=== PATIENT | male | born 1930 | race Caucasian/White ===

== ENCOUNTER 2019-07-01 10:15 | Inpatient (IN) | payer OTHER ==
[~2019-07-01] VITALS: Ht 177.8 cm; Wt 65.7 kg
[~2019-07-01 10:15] MED LIST: GLUC500 PO; IBUP600 PO; THERA1 EACH PO; TURMERIC PO
--- NOTE | 2019-07-01 10:53 | NUR ---
History, Chart, Medications and Allergies reviewed before start of procedure. Lungs clear T/O to Auscultation. Patient confirms NPO status and agrees with scheduled surgery. Pre-Op teaching done. Pt verbalizes understanding. Patient reports completing Chlorhexadine shower X2 prior to admission to hospital.
--- NOTE | 2019-07-01 19:19 | NUR ---
SHIFT SUMMARY PT STRUGGLED WITH NAUSEA AFTER WORKING WITH THERAPY. STATES RESOLVED WITH ZOFRAN. VOIDED. DENIES PAIN MORE THAN 1/10. PLEASANT AND COOPERATIVE.
--- NOTE | 2019-07-02 04:13 | NUR ---
SHIFT SUMMARY PT IS S/P R NIKKI WITH 3 DRESSINGS TO R LEG WHICH ARE CDI. PT A/O X4. PT HAS BEEN UP TO BATHROOM SEVERAL TIMES THIS SHIFT AND WALKS IND. WITH STANDBY ASSIST. PT DID VOID BUT WAS UNABLE TO EMPTY BLADDER AND WAS STRAIGHT CATH'D PER ORDERS. PT HAS SINCE BEEN RESTING QUIETLY IN BED. ASSISTED WTIH ADL'S PRN, TOLERATING PO INTAKE.
[2019-07-02 05:03] LABS: BASOPHILS ABSOLUTE AUTO 0.01 K/mm3 (0.00-0.23); BASOPHILS PERCENT AUTO 0 % (0-2); EOSINOPHILS ABSOLUTE AUTO 0.02 K/mm3 (0.00-0.68); EOSINOPHILS PERCENT AUTO 0 % (0-6); Hematocrit 31.4 % (37.0-53.0); Hemoglobin 10.9 g/dL (13.5-17.5); IMMATURE GRAN ABSOLUTE AUTO 0.08 K/mm3 (0.00-0.10); IMMATURE GRAN PERCENT AUTO 1 % (0-1); LYMPHOCYTES PERCENT AUTO 8 % (21-46); MONOCYTES ABSOLUTE AUTO 1.23 K/mm3 (0.16-1.47); MONOCYTES PERCENT AUTO 10 % (4-13); Mean Corpuscular HGB 34.6 pg (26.0-34.0); Mean Corpuscular HGB Conc 34.7 g/dL (31.5-36.5); Mean Corpuscular Volume 100 fL (80-100); Mean Platelet Volume 9.3 fL (9.1-12.4); NEUTROPHILS ABSOLUTE AUTO 10.54 K/mm3 (1.96-9.15); NEUTROPHILS PERCENT AUTO 82 % (41-73); Platelet Count 190 K/mm3 (150-400); RDW Coefficient Variation 12.8 % (11.7-14.2); RDW Standard Deviation 46.9 fL (35.1-46.3); Red Blood Cell Count 3.15 M/mm3 (4.30-5.90); White Blood Cell Count 12.88 K/mm3 (4.00-11.30)
[2019-07-02 05:33] LABS: Anion Gap 5 mmol/L (6-16); Blood Urea Nitrogen 13 mg/dL (8-24); CO2, Blood 27 mmol/L (21-32); Calcium, Blood 8.3 mg/dL (8.5-10.1); Chloride, Blood 101 mmol/L (98-108); Creatinine, Blood 0.59 mg/dL (0.60-1.20); Glomerular Filtration Rate >60 (60-); Glucose, Blood 120 mg/dL (70-99); Magnesium, Blood 1.8 mg/dL (1.6-2.4); Potassium, Blood 4.4 mmol/L (3.5-5.5); Sodium, Blood 133 mmol/L (136-145)
[2019-07-02] MEDS ORDERED: ASPI325 PO (14:04)
[2019-07-02] MEDS ORDERED: OXYC5 PO (14:05)
[2019-07-02] MEDS ORDERED: PROM25 PO (14:06)
--- NOTE | 2019-07-02 15:19 | NUR ---
pt unable to empty bladder, adamant about going home. Discussed at length the process of urinary retention as patient thinks he will be ok since "it's working" he is voiding 50-100ml each void however retained 380 on bladder scan. Up to void at this time 50ml bladder scan shows [address] Taveras notified, hospitalist consult called to Dr. Rogers
--- NOTE | 2019-07-02 16:10 | NUR ---
PATIENT UP TO VOID 150 ML. [facility] ADMIN AND DR SNELL HERE TO SPEAK WITH PATIENT. PATIENT AGREEABLE TO STAY UNTIL VOIDING ADAQUATELY. CONT TO MONITOR.
--- NOTE | 2019-07-02 18:40 | NUR ---
PATIENT UP TO BR W/SBA, FWW, VOIDED 200 ML. BLADDER SCAN = 379 ML. WILL REPORT TO BETTE LOYD.
--- NOTE | 2019-07-02 20:15 | NUR ---
PT ADAMANT ON LEAVING. EDUCATED ON RISK OF URINARY RETENTION. PT UNDERSTANDS RISKS. EDUCATED ON HOW TO STRAIGHT CATH SELF. PATIENT STATES UNDERSTANDING. ENCOURAGED PT TO FOLLOW UP WITH PRIMARY CARE. BLADDER SCANNED PT ON POST VOID OF 167 PRIOR TO DISCHARGE. PT STATES PLAN TO MONITOR URINE OUTPUT AND COME BACK IF UNABLE TO RELIEVE URGE. PT VOIDED 200 AFTER BLADDER SCAN. CURRENTLY AWAITING HIS RIDE HOME. DISCHARGE PAPERWORK GONE OVER. BELONGINGS WITH PATIENT. NO FURTHER QUESTIONS AT THIS TIME.
--- NOTE | 2019-07-02 20:38 | NUR ---
PT DISCHARGED TO HOME VIA WHEELCHAIR WITH SON. BELONGINGS WITH PATIENT INFO GONE OVER WITH PT. NO FURTHER QUESTIONS AT THIS TIME.
== END 2019-07-02 20:45 | disposition home or self-care (01) | DRG 470 ==
LOC: SURS 10:15 → PRE IP 12:15 → SURS 14:24
PROVIDERS: ADMIT Orthopaedic Surgery
PROC: 0SR904A Replacement of Right Hip Joint with Ceramic on Polyethylene Synthetic Substitute, Uncemented, Open Approach (ICD-10-PCS; principal; 2019-07-01 12:15)
DX: M16.11 Unilateral primary osteoarthritis, right hip (principal); Z98.890 Other specified postprocedural states; R33.9 Retention of urine, unspecified; J44.9 Chronic obstructive pulmonary disease, unspecified; G47.33 Obstructive sleep apnea (adult) (pediatric); J62.8 Pneumoconiosis due to other dust containing silica; G89.29 Other chronic pain
CPT/HCPCS: 36415; 72170; 80048; 83735; 85025; 88300; 97110; 97116; 97162; 97165; 97535; C1713; C1776; J0171; J0690; J0735; J1100; J1885; J2405; J2704; J2710; J2765; J2795; J3010; J7120

== ENCOUNTER → 2020-04-27 | Outpatient (CLI) | payer OTHER ==
[~2020-04-27] MED LIST changes: +ASPI325 PO; +OXYC5 PO; +PROM25 PO
== END ==
LOC: PLD 14:28 → LAB SHORT 14:28
DX: C44.319 Basal cell carcinoma of skin of other parts of face (principal)
CPT/HCPCS: 88305

== ENCOUNTER → 2020-06-01 | Outpatient (CLI) | payer OTHER | END | disposition home or self-care (01) | LOC: PLD 14:58 → LAB SHORT 14:58 | DX: C44.310 Basal cell carcinoma of skin of unspecified parts of face (principal) | CPT/HCPCS: 88305 ==

== ENCOUNTER 2020-09-15 09:41 | Day surgery (SDC) | payer OTHER ==
[~2020-09-15] VITALS: Ht 175.3 cm; Wt 63.6 kg
[~2020-09-15 09:41] MED LIST changes: +B COMPLEX FORM0.4 MG PO; +C COMPLEX1000 M1 PO; +TOCO1000 PO; +VITAMIN D310 MC4 PO; +Vitamin B-121000 MCG PO
--- NOTE | 2020-09-15 11:18 | NUR ---
IV ACCESS X2 UNSUCCESSFUL BY TAYO RN, X1 RUDY RN, X1 AYALA WITH 1 SUCCEFULL ATTEMPT BY AYALA LOYD. Ambulatory in Day Surgery History, Chart, Medications and Allergies reviewed before start of procedure.Patient confirms NPO status and agrees with scheduled surgery. Patient reports completing Chlorhexadine shower X2 prior to admission to hospital.Surgical site prepped with 2% Chlorhexidine cloth wipe.LUNG SOUNDS DIMINISHED T/O. Patient States Post-Procedure ride home has been arranged WITH SON
--- NOTE | 2020-09-15 11:33 | NUR ---
assumed care of patient recived rport waiting for marcial amato nurse to round
--- NOTE | 2020-09-15 14:28 | NUR ---
Dressing to procedure site clean, dry, intact with no visible drainage, swelling, erythema or bruising noted.
--- NOTE | 2020-09-15 14:57 | NUR ---
Discharge instructions reviewed with patient. Patient verbalizes understanding. Copy given to patient to take home. Dressing to procedure site clean, dry, intact with no visible drainage, swelling, erythema or bruising noted. Patient States Post-Procedure ride home has been arranged. Discharged via wheelchair to private car for ride home. TOLERATED PO. RETURNED PT WILL.
--- NOTE | 2020-09-15 14:58 | NUR ---
ARLENE VOIDED TWICE WHILE IN STEP WITHOUT DIFFICULTY.
== END 2020-09-15 15:00 | disposition home or self-care (01) ==
LOC: ORSCMMR 09:41 → ORD 11:15 → ORSCMMR 11:15
PROVIDERS: Surgery
PROC: 0YU60JZ Supplement Left Inguinal Region with Synthetic Substitute, Open Approach (ICD-10-PCS; principal; 2020-09-15 11:15)
DX: K40.90 Unilateral inguinal hernia, without obstruction or gangrene, not specified as recurrent (principal)
CPT/HCPCS: C1781; J0690; J1100; J2250; J2370; J2405; J2704; J3010; J7120

== ENCOUNTER → 2020-10-06 | Outpatient (CLI) | payer OTHER ==
[2020-10-07 13:40] LABS: Stool Occult Bld Immuno 1 Negative (NEGATIVE)
== END | disposition home or self-care (01) ==
LOC: LAB SHORT 10:39 → LAB 10:39
PROVIDERS: Family Medicine
DX: Z12.11 Encounter for screening for malignant neoplasm of colon (principal)
CPT/HCPCS: G0328

== ENCOUNTER → 2022-05-28 | Outpatient (CLI) | payer OTHER | LOC: PLD 10:51 → LAB SHORT 10:51 | DX: C44.41 Basal cell carcinoma of skin of scalp and neck (principal) | CPT/HCPCS: 88305 ==

== ENCOUNTER → 2022-07-04 | Outpatient (CLI) | payer OTHER | END | disposition home or self-care (01) | LOC: LAB SHORT 12:23 → LAB 12:23 | DX: C44.41 Basal cell carcinoma of skin of scalp and neck (principal) | CPT/HCPCS: 88305 ==